=== PATIENT | female | born 1960 | race Caucasian/White ===

== ENCOUNTER 2021-10-02 01:58 | Observation (INO) ==
[2021-10-02] MEDS ORDERED: Acetaminophen 325 MG TABLET PO PRN (21:37)
[2021-10-02] MEDS ORDERED: Melatonin 3 MG TABLET PO PRN (21:37)
[2021-10-02] MEDS ORDERED: Naloxone 0.4 MG/ML INJ IVP PRN (21:37)
[2021-10-02] MEDS: niCARdipine 20 MG/200 ML MLS IVC SCH (22:16)
[2021-10-03] MEDS ORDERED: Dextrose 4 GM Chewable Tablets PO PRN ×2 (01:24)
[2021-10-03] MEDS ORDERED: *HR* Dextrose 50 % in Water (Syg) 50 ML SYRINGE IVP PRN (01:24)
[2021-10-03] MEDS ORDERED: D5% in Water 1,000 ML IVC PRN (01:24)
[2021-10-03 01:53] LABS: VBG HCO3 15 mEq/L (21-27); VBG PCO2 26 mmHg (41-51); VBG PH 7.36 pH Units (7.32-7.42); VBG PO2 122 mmHg (25-50)
[2021-10-03] MEDS: niCARdipine 20 MG/200 ML MLS IVC SCH ×4 (01:57→12:05)
[2021-10-03 02:02] LABS: Basophils % 0.4 %; Eosinophils # 0.2 K/mcL (0.0-0.6); Eosinophils % 2.2 %; Hematocrit 30.4 % (35.3-44.9); Hemoglobin 9.1 g/dL (11.5-15.4); Immature Granulocytes % 0.5 % (0-4); Lymphocytes # 2.1 K/mcL (0.6-4.6); Lymphocytes % 21.4 %; Mean Corpuscular HGB Conc 29.9 g/dL (31.6-35.5); Mean Corpuscular Hemoglobin 28.7 pg (28.0-33.3); Mean Corpuscular Volume 95.9 fL (83.0-100.0); Mean Platelet Volume 9.6 fL (9.4-12.4); Monocytes # 1.1 K/mcL (0.0-1.3); Monocytes % 11.6 %; Neutrophils # 6.2 K/mcL (1.6-8.9); Platelet Count 160 K/mcL (140-400); Red Blood Count 3.17 M/mcL (3.82-4.97); Red Cell Distribution Width 14.2 % (11.5-14.5); Segmented Neutrophils % 63.9 %; White Blood Count 9.6 K/mcL (4.3-11.1)
[2021-10-03] MEDS ORDERED: *HR* LORazepam 2 MG/ML VIAL IVP PRN (02:03)
[2021-10-03] MEDS ORDERED: Perflutren Lipid Microsphere 1.3 ML in 0.9 % Sodium Chloride 8.7 ML IVP PRN (02:04)
[2021-10-03 02:11] LABS: INR 1.2
[2021-10-03 02:13] LABS: Activated Partial Thrombo Time 28.1 Seconds (26.0-36.0)
[2021-10-03] MEDS ORDERED: 0.9 % Sodium Chloride 1,000 ML IVC SCH (02:15)
[2021-10-03 02:35] LABS: Folate > 22.3 ng/mL (3.0-16.0); Vitamin B12 636 pg/mL (250-1100)
[2021-10-03 02:43] LABS: Calcium 5.8 mg/dL (8.6-10.3); Magnesium 1.6 mg/dL (1.6-2.6); Phosphorous 5.6 mg/dL (2.7-4.5); Potassium 3.5 mEq/L (3.5-5.1)
[2021-10-03 03:10] LABS: Estimated Average Glucose 105 mg/dl; Hemoglobin A1C 5.3 %
[2021-10-03] MEDS: Calcium Gluconate 1gm/50mL 1 GM/50 ML BAG IVPB SCH ×4 (03:12→09:41)
[2021-10-03 03:21] LABS: Troponin I 0.08 ng/mL (< 0.04)
[2021-10-03] MEDS ORDERED: Magnesium Sulfate 1 GM/102 ML PIGGYBACK IVPB ONE (03:24)
[2021-10-03 03:30] LABS: Acetaminophen < 10 mcg/mL (10-20); Salicylate < 2.5 mg/dL (15.0-30.0)
[2021-10-03 03:37] LABS: Chol/HDL Ratio 3.9 (0-4.9)
[2021-10-03] MEDS ORDERED: *HR* Heparin 5,000 UNIT/ML VIAL IVP ONE (03:58)
[2021-10-03] MEDS ORDERED: *HR* Heparin 5,000 UNIT/ML VIAL IVP PRN ×2 (03:58)
[2021-10-03] MEDS ORDERED: Heparin 25,000UNIT/250ML 1/2NS 25,000 UNIT/250 ML IV.SOLN IVC SCH (04:00)
[2021-10-03 04:09] LABS: Hematocrit 29.5 % (35.3-44.9); Hemoglobin 9.1 g/dL (11.5-15.4)
[2021-10-03 05:05] LABS: Protein/Creatinine Ratio,Urine 1.31 mg/mg (0.00-0.20)
[2021-10-03] MEDS ORDERED: levETIRAcetam 250 MG TABLET PO SCH (06:00)
[2021-10-03] MEDS ORDERED: *HR* Heparin 5,000 UNIT/ML VIAL SQ SCH (06:00)
[2021-10-03] MEDS: NIFEdipine XL (24 HR) 60 MG TAB.ER.24 PO SCH ×2 (06:33→09:46)
[2021-10-03 07:41] LABS: Hematocrit 30.6 % (35.3-44.9); Hemoglobin 9.4 g/dL (11.5-15.4)
[2021-10-03] MEDS ORDERED: carvediloL 6.25 MG TABLET PO SCH (08:00)
[2021-10-03] MEDS ORDERED: Piperacillin/Tazobactam 3.375 GM in 0.9 % Sodium Chloride Mini Bag 100 ML IVPB SCH (08:00)
[2021-10-03] MEDS ORDERED: NIFEdipine XL (24 HR) 60 MG TAB.ER.24 PO SCH (09:00)
[2021-10-03] MEDS ORDERED: Renal Vitamin 1 CAP CAPSULE PO SCH (09:00)
[2021-10-03] MEDS ORDERED: Thiamine (B-1) 100 MG in 0.9 % Sodium Chloride 50 ML IVPB SCH (09:00)
[2021-10-03 10:17] VITALS: BP 136/71; PULSE 87; TEMP 98.7; O2SAT 99
== END 2021-10-03 12:07 | disposition short-term general hospital (02) ==
LOC: 2NENU → SUATTDRO 20:44
PROVIDERS: ADMIT Internal Medicine; ATTEND Family Medicine

== ENCOUNTER 2021-11-30 20:06 | Inpatient (IN) ==
[2021-12-01] MEDS ORDERED: Melatonin 3 MG TABLET PO PRN (00:43)
[2021-12-01] MEDS ORDERED: Naloxone 0.4 MG/ML INJ IVP PRN (00:43)
[2021-12-01] MEDS: niCARdipine 20 MG/200 ML MLS IVC SCH ×6 (00:53→14:11)
[2021-12-01] MEDS ORDERED: D5% in Water 1,000 ML IVC PRN (01:03)
[2021-12-01] MEDS ORDERED: *HR* Dextrose 50 % in Water (Syg) 50 ML SYRINGE IVP PRN (01:03)
[2021-12-01] MEDS ORDERED: Dextrose Gel 15 GM/37.5 ML TUBE PO PRN ×2 (01:03)
[2021-12-01 02:51] LABS: Basophils % 0.3 %; Eosinophils % 0.3 %; Hematocrit 41.1 % (35.3-44.9); Hemoglobin 12.5 g/dL (11.5-15.4); Immature Granulocytes % 0.7 % (0-4); Lymphocytes # 1.7 K/mcL (0.6-4.6); Mean Corpuscular HGB Conc 30.4 g/dL (31.6-35.5); Mean Corpuscular Hemoglobin 28.3 pg (28.0-33.3); Mean Corpuscular Volume 93.2 fL (83.0-100.0); Mean Platelet Volume 9.3 fL (9.4-12.4); Monocytes % 8.7 %; Neutrophils # 8.7 K/mcL (1.6-8.9); Platelet Count 220 K/mcL (140-400); Red Blood Count 4.41 M/mcL (3.82-4.97); Red Cell Distribution Width 13.6 % (11.5-14.5); White Blood Count 11.5 K/mcL (4.3-11.1)
[2021-12-01 03:08] LABS: Prothrombin Time 11.3 Seconds (9.4-12.1)
[2021-12-01 03:11] LABS: Activated Partial Thrombo Time 29.3 Seconds (26.0-36.0)
[2021-12-01 03:32] LABS: Acetaminophen < 10 mcg/mL (10-20); Alanine Aminotransferase 19 Units/L (7-52); Albumin/Globulin Ratio 1.3 (1.1-2.2); Alkaline Phosphatase 78 Units/L (34-104); Aspartate Amino Transferase 22 Units/L (13-39); BUN/Creatinine Ratio 13 (6-26); Bilirubin,Total 0.5 mg/dL (0.3-1.0); Blood Urea Nitrogen 27 mg/dL (8-23); Calcium 8.8 mg/dL (8.6-10.3); Carbon Dioxide 23 mEq/L (23-29); Chloride 109 mEq/L (98-107); Chol/HDL Ratio 3.7 (0-4.9); Cholesterol 239 mg/dL (< 200); Creatine Kinase 94 Units/L (30-223); Glucose 91 mg/dL (70-105); HDL Cholesterol 65 mg/dL (40-59); LDL Cholesterol,Calculated 132 mg/dL (< 100); Magnesium 1.8 mg/dL (1.6-2.6); Osmolality,Calculated 301 (280-300); Phosphorous 5.6 mg/dL (2.7-4.5); Potassium 4.6 mEq/L (3.5-5.1); Prolactin 18.18 ng/mL (3.80-23.20); Salicylate < 2.5 mg/dL (15.0-30.0); Sodium 143 mEq/L (136-145); Triglycerides 211 mg/dL (< 150); Troponin I 0.06 ng/mL (< 0.04); eGFR For African Americans 29 (> 60); eGFR For Non-African Americans 24 (> 60)
[2021-12-01] MEDS ORDERED: Perflutren Lipid Microsphere 1.3 ML in 0.9 % Sodium Chloride 8.7 ML IVP PRN (04:32)
[2021-12-01] MEDS: hydrALAZINE 25 MG TABLET PO SCH ×3 (04:42→21:30)
[2021-12-01] MEDS: levETIRAcetam 250 MG TABLET PO SCH ×2 (04:43→16:49)
[2021-12-01] MEDS ORDERED: Vancomycin 1 EACH in 0.9 % Sodium Chloride 250 ML IVPB PRN (05:00)
[2021-12-01] MEDS: *HR* Heparin 5,000 UNIT/ML VIAL SQ SCH ×3 (05:23→21:31)
[2021-12-01] MEDS: Ipratropium/Albuterol Neb 3 ML IH SCH ×4 (05:47→21:51)
[2021-12-01 06:26] LABS: Folate > 22.3 ng/mL (3.0-16.0); Vitamin B12 455 pg/mL (250-1100)
[2021-12-01] MEDS: Piperacillin/Tazobactam 3.375 GM in 0.9 % Sodium Chloride Mini Bag 100 ML IVPB SCH ×2 (07:03→16:52)
[2021-12-01] MEDS: NIFEdipine XL (24 HR) 60 MG TAB.ER.24 PO SCH (08:27)
[2021-12-01] MEDS: carvediloL 25 MG TABLET PO SCH ×2 (08:27→16:49)
[2021-12-01] MEDS: Lactobacillus 1 EACH CAP.SPRINK PO SCH ×2 (08:27→21:30)
[2021-12-01] MEDS: Chlorhexidine Rinse 15 ML MOUTHWASH MM SCH ×2 (08:28→21:30)
[2021-12-01 08:47] LABS: Adenovirus Not Detected (Not Detect); Bordetella Pertussis Not Detected (Not Detect); Chlamydophila pneumoniae Not Detected (Not Detect); Coronavirus 229E Not Detected (Not Detect); Coronavirus HKU1 Not Detected (Not Detect); Coronavirus NL63 Not Detected (Not Detect); Coronavirus OC43 Not Detected (Not Detect); Human Metapneumovirus Not Detected (Not Detect); Human Rhinovirus/Enterovirus Not Detected (Not Detect); Influenza A Subtype 2009 H1 Not Detected (Not Detect); Influenza B Not Detected (Not Detect); Mycoplasma pneumoniae Not Detected (Not Detect); Parainfluenza Virus 1 Not Detected (Not Detect); Parainfluenza Virus 2 Not Detected (Not Detect); Parainfluenza Virus 3 Not Detected (Not Detect); Parainfluenza Virus 4 Not Detected (Not Detect); Respiratory Syncytial Virus Not Detected (Not Detect); SARS-CoV-2 Not Detected (Not Detect)
[2021-12-01] MEDS: Mycophenolate Sodium (DR) 180 MG TABLET.DR PO SCH ×2 (09:40→21:31)
[2021-12-01] MEDS: Renal Vitamin 1 CAP CAPSULE PO SCH (09:40)
[2021-12-01] MEDS: Budesonide/Formoterol 160/4.5 1 PUFF INH IH SCH ×2 (10:39→21:52)
[2021-12-01] MEDS: Acetaminophen 325 MG TABLET PO PRN (14:11)
[2021-12-01] MEDS: cloNIDine HCL 0.1 MG TABLET PO SCH ×2 (14:11→21:30)
[2021-12-01] MEDS: CloNIDine Patch 0.3 MG PATCH (WEEKLY) TD SCH (18:37)
[2021-12-01] MEDS: rOPINIRole 1 MG TABLET PO SCH (21:31)
[2021-12-02 01:23] LABS: Basophils % 0.1 %; Eosinophils # 0.1 K/mcL (0.0-0.6); Eosinophils % 1.9 %; Hematocrit 32.1 % (35.3-44.9); Immature Granulocytes % 0.3 % (0-4); Lymphocytes # 0.8 K/mcL (0.6-4.6); Lymphocytes % 11.2 %; Mean Corpuscular HGB Conc 29.9 g/dL (31.6-35.5); Mean Corpuscular Hemoglobin 27.7 pg (28.0-33.3); Mean Corpuscular Volume 92.8 fL (83.0-100.0); Mean Platelet Volume 9.9 fL (9.4-12.4); Monocytes # 0.3 K/mcL (0.0-1.3); Monocytes % 4.4 %; Neutrophils # 5.6 K/mcL (1.6-8.9); Platelet Count 175 K/mcL (140-400); Red Blood Count 3.46 M/mcL (3.82-4.97); Red Cell Distribution Width 13.8 % (11.5-14.5); Segmented Neutrophils % 82.1 %; White Blood Count 6.8 K/mcL (4.3-11.1)
[2021-12-02 01:27] LABS: Hemoglobin 9.6 g/dL (11.5-15.4)
[2021-12-02 02:04] LABS: Alanine Aminotransferase 13 Units/L (7-52); Albumin 3.1 g/dL (3.5-5.7); Albumin/Globulin Ratio 1.3 (1.1-2.2); Alkaline Phosphatase 59 Units/L (34-104); Aspartate Amino Transferase 12 Units/L (13-39); Bilirubin,Total 0.4 mg/dL (0.3-1.0); Blood Urea Nitrogen < 2 mg/dL (8-23); Calcium 7.4 mg/dL (8.6-10.3); Carbon Dioxide 23 mEq/L (23-29); Chloride 110 mEq/L (98-107); Globulin 2.4 g/dL (2.4-3.5); Glucose 96 mg/dL (70-105); Potassium 4.2 mEq/L (3.5-5.1); Sodium 142 mEq/L (136-145); Total Protein 5.5 g/dL (6.4-8.9); eGFR For African Americans 23 (> 60); eGFR For Non-African Americans 19 (> 60)
[2021-12-02] MEDS: Ipratropium/Albuterol Neb 3 ML IH SCH ×2 (04:35→10:11)
[2021-12-02] MEDS: hydrALAZINE 25 MG TABLET PO SCH ×3 (05:05→21:56)
[2021-12-02] MEDS: levETIRAcetam 250 MG TABLET PO SCH ×2 (05:06→17:01)
[2021-12-02] MEDS: niCARdipine 20 MG/200 ML MLS IVC SCH ×5 (05:06→21:56)
[2021-12-02] MEDS: Piperacillin/Tazobactam 3.375 GM in 0.9 % Sodium Chloride Mini Bag 100 ML IVPB SCH ×2 (06:55→17:01)
[2021-12-02] MEDS: *HR* Heparin 5,000 UNIT/ML VIAL SQ SCH ×3 (06:55→21:56)
[2021-12-02] MEDS: Chlorhexidine Rinse 15 ML MOUTHWASH MM SCH ×2 (07:46→21:55)
[2021-12-02] MEDS: carvediloL 25 MG TABLET PO SCH ×2 (07:47→17:01)
[2021-12-02] MEDS: NIFEdipine XL (24 HR) 60 MG TAB.ER.24 PO SCH (07:47)
[2021-12-02] MEDS: Mycophenolate Sodium (DR) 180 MG TABLET.DR PO SCH ×2 (07:47→21:55)
[2021-12-02] MEDS: Lactobacillus 1 EACH CAP.SPRINK PO SCH ×2 (07:47→21:55)
[2021-12-02] MEDS: cloNIDine HCL 0.1 MG TABLET PO SCH ×3 (07:47→21:55)
[2021-12-02] MEDS: Renal Vitamin 1 CAP CAPSULE PO SCH (07:47)
[2021-12-02] MEDS ORDERED: 0.9 % Sodium Chloride 1,000 ML IVC SCH (09:45)
[2021-12-02] MEDS: Budesonide/Formoterol 160/4.5 1 PUFF INH IH SCH ×2 (10:11→23:05)
[2021-12-02] MEDS ORDERED: Ipratropium/Albuterol Neb 3 ML IH PRN (13:35)
[2021-12-02] MEDS: *HR* LORazepam 1 MG TABLET PO PRN (15:22)
[2021-12-02] MEDS: rOPINIRole 1 MG TABLET PO SCH (21:55)
[2021-12-02 23:45] LABS: Hematocrit 28.9 % (35.3-44.9); Hemoglobin 8.8 g/dL (11.5-15.4)
[2021-12-03 04:45] LABS: Basophils % 0.1 %; Eosinophils # 0.2 K/mcL (0.0-0.6); Eosinophils % 2.2 %; Hematocrit 29.7 % (35.3-44.9); Hemoglobin 8.9 g/dL (11.5-15.4); Immature Granulocytes % 0.4 % (0-4); Lymphocytes # 0.8 K/mcL (0.6-4.6); Lymphocytes % 11.5 %; Mean Corpuscular Volume 93.4 fL (83.0-100.0); Mean Platelet Volume 10.3 fL (9.4-12.4); Monocytes # 0.6 K/mcL (0.0-1.3); Monocytes % 8.6 %; Neutrophils # 5.6 K/mcL (1.6-8.9); Platelet Count 151 K/mcL (140-400); Red Blood Count 3.18 M/mcL (3.82-4.97); Red Cell Distribution Width 13.7 % (11.5-14.5); Segmented Neutrophils % 77.2 %; White Blood Count 7.2 K/mcL (4.3-11.1)
[2021-12-03 05:05] LABS: Albumin 3.1 g/dL (3.5-5.7); Albumin/Globulin Ratio 1.2 (1.1-2.2); Bilirubin,Total 0.3 mg/dL (0.3-1.0); Globulin 2.5 g/dL (2.4-3.5); Potassium 3.9 mEq/L (3.5-5.1); Total Protein 5.6 g/dL (6.4-8.9)
[2021-12-03] MEDS: Piperacillin/Tazobactam 3.375 GM in 0.9 % Sodium Chloride Mini Bag 100 ML IVPB SCH ×2 (06:40→16:21)
[2021-12-03] MEDS: hydrALAZINE 25 MG TABLET PO SCH ×3 (06:41→20:12)
[2021-12-03] MEDS: levETIRAcetam 250 MG TABLET PO SCH ×2 (06:41→16:20)
[2021-12-03] MEDS: niCARdipine 20 MG/200 ML MLS IVC SCH ×2 (06:42→07:11)
[2021-12-03] MEDS: *HR* Heparin 5,000 UNIT/ML VIAL SQ SCH ×3 (06:42→20:12)
[2021-12-03] MEDS: Mycophenolate Sodium (DR) 180 MG TABLET.DR PO SCH ×2 (07:29→20:12)
[2021-12-03] MEDS: Renal Vitamin 1 CAP CAPSULE PO SCH (07:29)
[2021-12-03] MEDS: cloNIDine HCL 0.1 MG TABLET PO SCH ×3 (07:29→20:12)
[2021-12-03] MEDS: Lactobacillus 1 EACH CAP.SPRINK PO SCH ×2 (07:29→20:12)
[2021-12-03] MEDS: carvediloL 25 MG TABLET PO SCH ×2 (07:29→16:21)
[2021-12-03] MEDS: NIFEdipine XL (24 HR) 60 MG TAB.ER.24 PO SCH (07:29)
[2021-12-03] MEDS: Chlorhexidine Rinse 15 ML MOUTHWASH MM SCH ×2 (07:30→20:12)
[2021-12-03] MEDS: Budesonide/Formoterol 160/4.5 1 PUFF INH IH SCH ×2 (07:55→22:11)
[2021-12-03] MEDS ORDERED: QUEtiapine Fumarate 25 MG TABLET PO PRN (13:29)
[2021-12-03] MEDS: Thiamine (B-1) 100 MG in 0.9 % Sodium Chloride 50 ML IVPB SCH (14:17)
[2021-12-03] MEDS: *HR* LORazepam 1 MG TABLET PO PRN (14:17)
[2021-12-03] MEDS: Acetaminophen 325 MG TABLET PO PRN (16:20)
[2021-12-03] MEDS: rOPINIRole 1 MG TABLET PO SCH (20:12)
[2021-12-04] MEDS: *HR* LORazepam 1 MG TABLET PO PRN (03:03)
[2021-12-04] MEDS: Acetaminophen 325 MG TABLET PO PRN ×2 (03:03→15:52)
[2021-12-04 03:06] LABS: Basophils % 0.1 %; Eosinophils # 0.2 K/mcL (0.0-0.6); Eosinophils % 2.2 %; Hematocrit 29.4 % (35.3-44.9); Hemoglobin 8.9 g/dL (11.5-15.4); Immature Granulocytes % 0.3 % (0-4); Lymphocytes % 14.4 %; Mean Corpuscular HGB Conc 30.3 g/dL (31.6-35.5); Mean Corpuscular Hemoglobin 28.3 pg (28.0-33.3); Mean Corpuscular Volume 93.6 fL (83.0-100.0); Mean Platelet Volume 10.5 fL (9.4-12.4); Monocytes # 0.7 K/mcL (0.0-1.3); Monocytes % 10.6 %; Neutrophils # 4.9 K/mcL (1.6-8.9); Platelet Count 170 K/mcL (140-400); Red Blood Count 3.14 M/mcL (3.82-4.97); Red Cell Distribution Width 13.6 % (11.5-14.5); Segmented Neutrophils % 72.4 %; White Blood Count 6.8 K/mcL (4.3-11.1)
[2021-12-04 03:27] LABS: Albumin 3.4 g/dL (3.5-5.7); Calcium 6.8 mg/dL (8.6-10.3); Phosphorous 6.5 mg/dL (2.7-4.5); Potassium 3.9 mEq/L (3.5-5.1)
[2021-12-04 03:28] LABS: Uric Acid 8.6 mg/dL (2.3-7.6)
[2021-12-04 03:29] LABS: Albumin 3.3 g/dL (3.5-5.7); Albumin/Globulin Ratio 1.4 (1.1-2.2); Bilirubin,Total 0.3 mg/dL (0.3-1.0); Calcium 6.8 mg/dL (8.6-10.3); Globulin 2.4 g/dL (2.4-3.5); Potassium 3.9 mEq/L (3.5-5.1); Total Protein 5.7 g/dL (6.4-8.9)
[2021-12-04 03:42] LABS: Thyroid Stimulating Hormone 1.238 mcIU/mL (0.340-5.600)
[2021-12-04] MEDS: hydrALAZINE 25 MG TABLET PO SCH ×3 (05:44→20:12)
[2021-12-04] MEDS: *HR* Heparin 5,000 UNIT/ML VIAL SQ SCH ×3 (05:44→22:31)
[2021-12-04] MEDS: levETIRAcetam 250 MG TABLET PO SCH ×2 (05:45→17:59)
[2021-12-04] MEDS: Piperacillin/Tazobactam 3.375 GM in 0.9 % Sodium Chloride Mini Bag 100 ML IVPB SCH (05:47)
[2021-12-04] MEDS: Budesonide/Formoterol 160/4.5 1 PUFF INH IH SCH ×2 (07:31→20:02)
[2021-12-04] MEDS ORDERED: CloNIDine Patch 0.3 MG PATCH (WEEKLY) TD ONE (08:00)
[2021-12-04] MEDS: cloNIDine HCL 0.1 MG TABLET PO SCH (08:18)
[2021-12-04] MEDS: NIFEdipine XL (24 HR) 60 MG TAB.ER.24 PO SCH (08:18)
[2021-12-04] MEDS: Mycophenolate Sodium (DR) 180 MG TABLET.DR PO SCH ×2 (08:18→20:11)
[2021-12-04] MEDS: carvediloL 25 MG TABLET PO SCH ×2 (08:18→16:17)
[2021-12-04] MEDS: Renal Vitamin 1 CAP CAPSULE PO SCH (08:18)
[2021-12-04] MEDS: Lactobacillus 1 EACH CAP.SPRINK PO SCH ×2 (08:18→20:11)
[2021-12-04] MEDS: Chlorhexidine Rinse 15 ML MOUTHWASH MM SCH ×2 (08:18→20:12)
[2021-12-04] MEDS: Thiamine (B-1) 100 MG in 0.9 % Sodium Chloride 50 ML IVPB SCH (08:33)
[2021-12-04 08:47] LABS: VBG Ionized Calcium 0.87 mmol/L (1.15-1.35)
[2021-12-04] MEDS ORDERED: hydrALAZINE 10 MG TABLET PO PRN (14:04)
[2021-12-04] MEDS: Ondansetron 4 MG/2 ML VIAL IVP PRN (16:19)
[2021-12-04 16:59] LABS: Bilirubin,Urine Negative (Negative); Blood,Urine Negative (Negative); Clarity,Urine Clear (Clear); Color,Urine Light-Yellow (Yellow); Glucose,Urine (UA) Normal (Normal); Ketones,Urine Negative (Negative); Leukocyte Esterase,Urine Negative (Negative); Nitrite,Urine Negative (Negative); PH,Urine 6.5 pH Units (5.0-8.0); Protein,Urine >=300 mg/dL (Neg-Trace); RBC,Urine 0-3 per hpf (0-3); Specific Gravity,Urine 1.015 (1.010-1.025); Urobilinogen,Urine Normal (Normal); WBC,Urine 0-3 per hpf (0-3)
[2021-12-04] MEDS ORDERED: cloNIDine HCL 0.1 MG TABLET PO ONE (18:50)
[2021-12-04] MEDS: rOPINIRole 1 MG TABLET PO SCH (20:12)
[2021-12-04] MEDS ORDERED: Acetaminophen IV 500 MG/50 ML BAG IVPB ONE (22:45)
[2021-12-04 23:11] LABS: Basophils % 0.2 %; Eosinophils # 0.1 K/mcL (0.0-0.6); Hemoglobin 9.7 g/dL (11.5-15.4); Immature Granulocytes % 0.6 % (0-4); Mean Corpuscular HGB Conc 31.3 g/dL (31.6-35.5); Mean Corpuscular Hemoglobin 28.4 pg (28.0-33.3); Mean Corpuscular Volume 90.6 fL (83.0-100.0); Mean Platelet Volume 10.4 fL (9.4-12.4); Monocytes % 10.5 %; Neutrophils # 7.7 K/mcL (1.6-8.9); Platelet Count 186 K/mcL (140-400); Red Blood Count 3.42 M/mcL (3.82-4.97); Red Cell Distribution Width 13.5 % (11.5-14.5); Segmented Neutrophils % 77.7 %; White Blood Count 9.9 K/mcL (4.3-11.1)
[2021-12-04] MEDS: *HR* HYDROmorphone (PF) 1 MG/ML SYRINGE IVP PRN ×2 (23:20→23:31)
[2021-12-04 23:25] LABS: Albumin 3.5 g/dL (3.5-5.7); Albumin/Globulin Ratio 1.2 (1.1-2.2); Bilirubin,Total 0.4 mg/dL (0.3-1.0); Calcium 7.4 mg/dL (8.6-10.3); Potassium 3.8 mEq/L (3.5-5.1); Total Protein 6.5 g/dL (6.4-8.9)
[2021-12-04 23:37] LABS: ABG Base Excess -5 mEq/L (-2 to 3); ABG HCO3 19 mEq/L (21-27); ABG Oxygen Saturation 98 % (95-98); ABG PCO2 31 mmHg (35-45); ABG PO2 95 mmHg (85-104); ABG TCO2 20 mEq/L (20-26)
[2021-12-05] MEDS: levETIRAcetam 250 MG TABLET PO SCH ×2 (06:00→16:59)
[2021-12-05] MEDS: *HR* Heparin 5,000 UNIT/ML VIAL SQ SCH ×3 (06:00→21:25)
[2021-12-05] MEDS: hydrALAZINE 25 MG TABLET PO SCH ×3 (06:00→20:17)
[2021-12-05] MEDS: Acetaminophen 325 MG TABLET PO PRN ×2 (06:00→20:16)
[2021-12-05 06:22] LABS: Basophils % 0.1 %; Eosinophils # 0.1 K/mcL (0.0-0.6); Hematocrit 30.6 % (35.3-44.9); Hemoglobin 9.2 g/dL (11.5-15.4); Immature Granulocytes % 0.3 % (0-4); Lymphocytes % 11.3 %; Mean Corpuscular HGB Conc 30.1 g/dL (31.6-35.5); Mean Corpuscular Hemoglobin 28.1 pg (28.0-33.3); Mean Corpuscular Volume 93.6 fL (83.0-100.0); Mean Platelet Volume 10.3 fL (9.4-12.4); Monocytes # 1.1 K/mcL (0.0-1.3); Monocytes % 12.9 %; Neutrophils # 6.4 K/mcL (1.6-8.9); Platelet Count 172 K/mcL (140-400); Red Blood Count 3.27 M/mcL (3.82-4.97); Red Cell Distribution Width 13.4 % (11.5-14.5); Segmented Neutrophils % 74.4 %; White Blood Count 8.7 K/mcL (4.3-11.1)
[2021-12-05 06:37] LABS: Albumin 3.3 g/dL (3.5-5.7); Albumin/Globulin Ratio 1.2 (1.1-2.2); Bilirubin,Total 0.4 mg/dL (0.3-1.0); Globulin 2.7 g/dL (2.4-3.5); Potassium 3.7 mEq/L (3.5-5.1)
[2021-12-05] MEDS: Budesonide/Formoterol 160/4.5 1 PUFF INH IH SCH ×2 (07:50→19:58)
[2021-12-05] MEDS: Lactobacillus 1 EACH CAP.SPRINK PO SCH ×2 (08:08→20:16)
[2021-12-05] MEDS: Renal Vitamin 1 CAP CAPSULE PO SCH (08:09)
[2021-12-05] MEDS: Chlorhexidine Rinse 15 ML MOUTHWASH MM SCH ×2 (08:09→20:17)
[2021-12-05] MEDS: carvediloL 25 MG TABLET PO SCH ×2 (08:09→17:00)
[2021-12-05] MEDS: Mycophenolate Sodium (DR) 180 MG TABLET.DR PO SCH (08:09)
[2021-12-05] MEDS: NIFEdipine XL (24 HR) 60 MG TAB.ER.24 PO SCH (08:09)
[2021-12-05] MEDS: Thiamine (B-1) 100 MG in 0.9 % Sodium Chloride 50 ML IVPB SCH (08:10)
[2021-12-05] MEDS: *HR* HYDROmorphone (PF) 1 MG/ML SYRINGE IVP PRN ×2 (15:15→21:45)
[2021-12-05] MEDS: Ondansetron 4 MG/2 ML VIAL IVP PRN (19:55)
[2021-12-05] MEDS: rOPINIRole 1 MG TABLET PO SCH (20:16)
[2021-12-05] MEDS ORDERED: mycophenolate mofetiL 250 MG CAPSULE PO SCH (21:00)
[2021-12-05] MEDS: mycophenolate mofetiL 250 MG CAPSULE PO SCH (21:48)
[2021-12-05] MEDS ORDERED: *HR* HYDROmorphone (PF) 1 MG/ML SYRINGE IVP STA (22:48)
[2021-12-06 03:58] LABS: Basophils % 0.2 %; Eosinophils # 0.1 K/mcL (0.0-0.6); Eosinophils % 0.5 %; Hematocrit 28.2 % (35.3-44.9); Hemoglobin 8.5 g/dL (11.5-15.4); Immature Granulocytes % 0.5 % (0-4); Lymphocytes # 0.8 K/mcL (0.6-4.6); Lymphocytes % 6.4 %; Mean Corpuscular HGB Conc 30.1 g/dL (31.6-35.5); Mean Corpuscular Hemoglobin 27.8 pg (28.0-33.3); Mean Corpuscular Volume 92.2 fL (83.0-100.0); Mean Platelet Volume 10.9 fL (9.4-12.4); Monocytes # 1.2 K/mcL (0.0-1.3); Monocytes % 9.7 %; Neutrophils # 10.4 K/mcL (1.6-8.9); Platelet Count 189 K/mcL (140-400); Red Blood Count 3.06 M/mcL (3.82-4.97); Red Cell Distribution Width 13.5 % (11.5-14.5); Segmented Neutrophils % 82.7 %; White Blood Count 12.5 K/mcL (4.3-11.1)
[2021-12-06] MEDS: hydrALAZINE 25 MG TABLET PO SCH ×3 (04:01→20:33)
[2021-12-06 04:16] LABS: Albumin 3.2 g/dL (3.5-5.7); Albumin/Globulin Ratio 1.1 (1.1-2.2); Bilirubin,Total 0.4 mg/dL (0.3-1.0); Potassium 3.7 mEq/L (3.5-5.1); Total Protein 6.2 g/dL (6.4-8.9)
[2021-12-06] MEDS: *HR* HYDROmorphone (PF) 1 MG/ML SYRINGE IVP PRN ×2 (04:45→18:00)
[2021-12-06] MEDS: Acetaminophen 325 MG TABLET PO PRN ×3 (04:45→23:53)
[2021-12-06] MEDS: levETIRAcetam 250 MG TABLET PO SCH ×2 (05:03→17:12)
[2021-12-06] MEDS: *HR* Heparin 5,000 UNIT/ML VIAL SQ SCH ×3 (05:04→20:35)
[2021-12-06 05:31] LABS: Bilirubin,Urine Negative (Negative); Blood,Urine Negative (Negative); Clarity,Urine Turbid (Clear); Color,Urine Yellow (Yellow); Glucose,Urine (UA) Normal (Normal); Hyaline Casts,Urine Few per lpf (None Seen); Ketones,Urine Negative (Negative); Leukocyte Esterase,Urine Negative (Negative); Mucus,Urine Few per lpf (None-Few); Nitrite,Urine Negative (Negative); Protein,Urine >=300 mg/dL (Neg-Trace); Specific Gravity,Urine 1.017 (1.010-1.025); Squamous Epithelial Cell,Urine Few per hpf (None-Few); Urobilinogen,Urine Normal (Normal)
[2021-12-06] MEDS: Budesonide/Formoterol 160/4.5 1 PUFF INH IH SCH ×2 (07:59→20:13)
[2021-12-06] MEDS: Lactobacillus 1 EACH CAP.SPRINK PO SCH ×2 (08:29→20:33)
[2021-12-06] MEDS: NIFEdipine XL (24 HR) 60 MG TAB.ER.24 PO SCH (08:30)
[2021-12-06] MEDS: carvediloL 25 MG TABLET PO SCH ×2 (08:30→17:12)
[2021-12-06] MEDS: Renal Vitamin 1 CAP CAPSULE PO SCH (08:30)
[2021-12-06] MEDS: Chlorhexidine Rinse 15 ML MOUTHWASH MM SCH ×2 (08:30→20:34)
[2021-12-06] MEDS: mycophenolate mofetiL 250 MG CAPSULE PO SCH ×2 (08:30→20:34)
[2021-12-06] MEDS: Thiamine (B-1) 100 MG in 0.9 % Sodium Chloride 50 ML IVPB SCH (08:32)
[2021-12-06 13:05] LABS: Adenovirus Not Detected (Not Detect); Bordetella Pertussis Not Detected (Not Detect); Chlamydophila pneumoniae Not Detected (Not Detect); Coronavirus 229E Not Detected (Not Detect); Coronavirus HKU1 Not Detected (Not Detect); Coronavirus NL63 Not Detected (Not Detect); Coronavirus OC43 Not Detected (Not Detect); Human Metapneumovirus Not Detected (Not Detect); Human Rhinovirus/Enterovirus Not Detected (Not Detect); Influenza A Subtype 2009 H1 Not Detected (Not Detect); Influenza B Not Detected (Not Detect); Mycoplasma pneumoniae Not Detected (Not Detect); Parainfluenza Virus 1 Not Detected (Not Detect); Parainfluenza Virus 2 Not Detected (Not Detect); Parainfluenza Virus 3 Not Detected (Not Detect); Parainfluenza Virus 4 Not Detected (Not Detect); Respiratory Syncytial Virus Not Detected (Not Detect); SARS-CoV-2 Not Detected (Not Detect)
[2021-12-06] MEDS ORDERED: Vancomycin Oral Soln 125 MG/2.5 ML UDC PO SCH ×2 (18:00→21:00)
[2021-12-06 19:40] LABS: Creatinine,Urine 167 mg/dL; Protein/Creatinine Ratio,Urine 1.35 mg/mg (0.00-0.20); Sodium, Urine < 10.0 mEq/L
[2021-12-06 19:47] LABS: Magnesium 2.1 mg/dL (1.6-2.6); Phosphorous 7.5 mg/dL (2.7-4.5)
[2021-12-06] MEDS: rOPINIRole 1 MG TABLET PO SCH (20:34)
[2021-12-07] MEDS: *HR* HYDROmorphone (PF) 1 MG/ML SYRINGE IVP PRN (02:24)
[2021-12-07 04:41] LABS: Basophils % 0.1 %; Eosinophils # 0.1 K/mcL (0.0-0.6); Eosinophils % 0.6 %; Hematocrit 26.4 % (35.3-44.9); Immature Granulocytes % 0.4 % (0-4); Lymphocytes # 0.7 K/mcL (0.6-4.6); Lymphocytes % 6.3 %; Mean Corpuscular HGB Conc 30.3 g/dL (31.6-35.5); Mean Corpuscular Hemoglobin 28.1 pg (28.0-33.3); Mean Corpuscular Volume 92.6 fL (83.0-100.0); Mean Platelet Volume 10.4 fL (9.4-12.4); Monocytes # 1.1 K/mcL (0.0-1.3); Monocytes % 10.2 %; Neutrophils # 9.1 K/mcL (1.6-8.9); Platelet Count 228 K/mcL (140-400); Red Blood Count 2.85 M/mcL (3.82-4.97); Red Cell Distribution Width 13.3 % (11.5-14.5); Segmented Neutrophils % 82.4 %
[2021-12-07 04:57] LABS: Albumin 3.3 g/dL (3.5-5.7); Albumin/Globulin Ratio 1.1 (1.1-2.2); Bilirubin,Total 0.3 mg/dL (0.3-1.0); Globulin 2.9 g/dL (2.4-3.5); Magnesium 2.1 mg/dL (1.6-2.6); Phosphorous 7.2 mg/dL (2.7-4.5); Potassium 3.9 mEq/L (3.5-5.1); Total Protein 6.2 g/dL (6.4-8.9)
[2021-12-07] MEDS: hydrALAZINE 25 MG TABLET PO SCH (05:33)
[2021-12-07] MEDS: *HR* Heparin 5,000 UNIT/ML VIAL SQ SCH (06:11)
[2021-12-07] MEDS: levETIRAcetam 250 MG TABLET PO SCH (06:12)
[2021-12-07 06:37] VITALS: BP 124/53; PULSE 88; TEMP 98.5; O2SAT 95
[2021-12-07] MEDS: Budesonide/Formoterol 160/4.5 1 PUFF INH IH SCH (07:48)
[2021-12-07] MEDS: Lactobacillus 1 EACH CAP.SPRINK PO SCH (08:25)
[2021-12-07] MEDS: Renal Vitamin 1 CAP CAPSULE PO SCH (08:25)
[2021-12-07] MEDS: CloNIDine Patch 0.3 MG PATCH (WEEKLY) TD SCH (08:25)
[2021-12-07] MEDS: mycophenolate mofetiL 250 MG CAPSULE PO SCH (08:25)
[2021-12-07] MEDS: carvediloL 25 MG TABLET PO SCH (08:25)
[2021-12-07] MEDS: NIFEdipine XL (24 HR) 60 MG TAB.ER.24 PO SCH (08:25)
[2021-12-07] MEDS: Chlorhexidine Rinse 15 ML MOUTHWASH MM SCH (08:26)
[2021-12-07] MEDS: Ondansetron 4 MG/2 ML VIAL IVP PRN (08:46)
[2021-12-10 07:07] LABS: ANA IgG by ELISA NONE DETECTED (None Detected)
[2021-12-11 09:11] LABS: Beta Globulin (PEP) 0.63 g/dL (0.48-1.10)
[2021-12-11 09:37] LABS: IFE Reflexed NOT DONE
== END 2021-12-07 08:35 | disposition short-term general hospital (02) | DRG 720 ==
LOC: 2NNU → SUATTDRO 12-01 00:13
PROVIDERS: ADMIT Internal Medicine; ATTEND Student in an Organized Health Care Education/Training Program